=== PATIENT | female | born 1980 | race Caucasian/White ===

== ENCOUNTER → 2021-03-24 | Outpatient (CLI) | payer OTHER ==
[~2021-03-24] MED LIST: BUPR-168 PO; CEFP500T4 PO; GADOTERATE 0.5 MMOL/ML (CLARISCAN) 15 ML VIAL IV ONE; HYDR-3583 PO; IOHEXOL 240 MGI/ML 50 ML (OMNIPAQUE) VIAL IV ONE; IPRA3AMP19 IH; LEVO75TA6 PO; METH4TAB PO; NAPR-243 PO; ONDN4T PO; TRM50T PO
--- NOTE | 2021-03-24 14:44 | Diagnostic Imaging Report ---
INDICATION: Left shoulder pain. FINDINGS: Patient was brought to the procedure room, placed on table in the supine position. The left shoulder was prepped and draped in usual sterile fashion. Small amount of 1% lidocaine was utilized for local anesthesia. A 22-gauge needle was advanced and placed with its tip at the rotator interval. A 15 mL solution of iodinated contrast, normal saline, and gadolinium was injected under fluoroscopic observation. Needle was withdrawn and hemostasis was obtained. Total of 12 seconds of fluoroscopic time was utilized. IMPRESSION: Successful left shoulder injection of gadolinium contrast solution, using fluoroscopy. Dictated by: Dictated on workstation # [id number]
--- NOTE | 2021-03-24 16:02 | Diagnostic Imaging Report ---
INDICATION: Left shoulder pain with no known injuries. EXAMINATION: Left shoulder MRI with contrast on 03/24/2021. FINDINGS: The supraspinatus and infraspinatus tendons appear intact. The subscapularis tendon is intact. The long head of the biceps tendon lies in the bicipital groove and is also intact. The biceps tendon anchor appears intact. The labrum appears intact. There is no acute osseous abnormality. Muscle volume is preserved. The visualized axilla is unremarkable. IMPRESSION: Unremarkable MRI of the shoulder with the rotator cuff and labrum intact. Dictated by: Dictated on workstation # [id number]
== END ==
LOC: RAD 14:15
PROVIDERS: ATTEND Nurse Practitioner
DX: S43.432A Superior glenoid labrum lesion of left shoulder, initial encounter (principal); X58.XXXA Exposure to other specified factors, initial encounter
CPT/HCPCS: 23350; 73040; 73222

== ENCOUNTER 2021-06-01 17:23 | Emergency (ER) | payer OTHER ==
[~2021-06-01] VITALS: Ht 170 cm; Wt 88.0 kg
[~2021-06-01 17:23] MED LIST changes: -GADOTERATE 0.5 MMOL/ML (CLARISCAN) 15 ML VIAL IV ONE; -IOHEXOL 240 MGI/ML 50 ML (OMNIPAQUE) VIAL IV ONE
[2021-06-01 17:44] LABS: BASOPHILS % (AUTO) 1 % (0-10); EOSINOPHILS # (AUTO) 0.3 10^3/uL (0.0-0.3); EOSINOPHILS % (AUTO) 4 % (0-10); HEMATOCRIT 44 % (35-52); HEMOGLOBIN 14.8 g/dL (11.5-16.0); LYMPHOCYTES % (AUTO) 30 % (12-44); MEAN CORPUSCULAR HEMOGLOBIN 32 pg (25-34); MEAN CORPUSCULAR HGB CONC 34 g/dL (32-36); MEAN CORPUSCULAR VOLUME 95 fL (80-99); MEAN PLATELET VOLUME 10.3 fL (9.0-12.2); MONOCYTES # (AUTO) 0.5 10^3/uL (0.0-1.0); MONOCYTES % (AUTO) 8 % (0-12); NEUTROPHILS # (AUTO) 3.9 10^3/uL (1.8-7.8); NEUTROPHILS % (AUTO) 57 % (42-75); PLATELET COUNT 239 10^3/uL (130-400); WHITE BLOOD COUNT 6.8 10^3/uL (4.3-11.0)
[2021-06-01] MEDS ORDERED: ASPIRIN 81 MG CHEW (CHILDREN'S ASA) PO ONE ×2 (17:45→18:30)
[2021-06-01 17:53] LABS: INR 0.9 (0.8-1.4); PROTHROMBIN TIME PATIENT 12.8 SEC (12.2-14.7)
[2021-06-01 17:57] LABS: ALBUMIN 4.4 GM/DL (3.2-4.5); POTASSIUM 3.9 MMOL/L (3.6-5.0)
[2021-06-01 17:58] LABS: CALCIUM 9.2 MG/DL (8.5-10.1)
[2021-06-01 18:01] LABS: BILIRUBIN,TOTAL 0.7 MG/DL (0.1-1.0)
[2021-06-01 18:03] LABS: CREATININE SERUM 0.82 MG/DL (0.60-1.30)
[2021-06-01 18:06] LABS: MAGNESIUM 2.2 MG/DL (1.6-2.4)
--- NOTE | 2021-06-01 18:23 | Diagnostic Imaging Report ---
INDICATION: Back and shoulder pain. COMPARISON: None. FINDINGS: Single view of the chest demonstrates clear lungs bilaterally. The heart is normal. There is no pneumothorax. Osseous structures are normal. IMPRESSION: Negative chest. Dictated by: Dictated on workstation # [id number]
[2021-06-01] MEDS ORDERED: NITROGLYCERIN 0.4 MG SL TABS BTL 25'S SL PRN (18:30)
[2021-06-01] MEDS ORDERED: FAMOTIDINE 20MG/2ML IV (PEPCID) IV STA (18:44)
[2021-06-01] MEDS ORDERED: ANTACID SUSP 30 ML UDC (MYLANTA) PO ONE (18:45)
[2021-06-01] MEDS ORDERED: LIDOCAINE 2% VISCOUS 15 ML UDC PO ONE (18:45)
[2021-06-01] MEDS ORDERED: ONDANSETRON 4 MG/2 ML (SDV) Z0FRAN IVP ONE (18:45)
--- NOTE | 2021-06-01 19:38 | ED Chest Pain ---
General Chief Complaint: Chest Pain Stated Complaint: CHEST PAIN / SOA Nursing Triage Note: PT AMB TO ER WITH C/O CP SINCE 0 THAT RADIATED TO R SHOULDER AND BACK. PT WAS DRIVING WHEN IT STARTED. PT ALSO STATES SHE WAS COVID + ON 05/20 Source: patient Exam Limitations: no limitations History of Present Illness Date Seen by Provider: Jun 01, 2021 Time Seen by Provider: 17:33 Initial Comments This 40-year-old young lady presents to the emergency room with concerns about persistent chest pain since about noon today. It radiates to her back. Pain started while she was driving. She stopped at the [facility] clinic in [place] where she obtained an EKG. They advised her to come to the emergency room because they are worried about DVT. She has a positive COVID-19 test on May 20 after developing symptoms on May 19. She is on day 14 since onset of symptoms. There are no exacerbating or alleviating factors to her chest pain. She denies any associated symptoms such as shortness of breath, cough, fever, nausea, vomiting, lightheadedness, etc. she had a brief episode of diaphoresis while she was in [place]. Allergies and Home Medications Allergies Coded Allergies: ZAYDAANo Known Allergies (Verified Allergy, Unknown, 12/11/06) Patient Home Medication List Home Medication List Reviewed: Yes Bupropion Hcl (Wellbutrin Tab) 75 Mg Tab, 75 MG PO DAILY, (Reported) Entered as Reported by: CARLYN POE on 12/22/12 153 Levothyroxine Sodium (Levothyroxine 75 Mcg Tab) 75 Mcg Tablet, 75 MCG PO DAILY, (Reported) Entered as Reported by: CARLYN POE on 12/22/12 153 Naproxen (Naprosyn) 500 Mg Tablet, 1 EACH PO TID PRN Prescribed by: ARTURO FANG on 12/22/121715 Tramadol Hcl (Ultram) 50 Mg Tab, 50 MG PO Q4-6HOURS PRN Prescribed by: ARTURO FANG on 12/22/121715 Review of Systems Review of Systems Constitutional: see HPI EENTM: No Symptoms Reported Respiratory: No Symptoms Reported Cardiovascular: See HPI Gastrointestinal: No Symptoms Reported Genitourinary: No Symptoms Reported Musculoskeletal: no symptoms reported Skin: no symptoms reported Psychiatric/Neurological: No Symptoms Reported Endocrine: No Symptoms Reported Past Uunfptx-Odaphr-Frupid Hx Patient Social History Tobacco Use?: Yes Tobacco type used: Cigarettes Smoking Status: Current Everyday Smoker Substance use?: No Pt feels they are or have been: No Immunizations Up To Date Influenza Vaccine Up-to-Date: Yes; Up-to-Date First/Initial COVID19 Vaccinat: JAN 2021 Second COVID19 Vaccination Sander: MAR 2021 Past Medical History Surgeries: Yes Appendectomy, Hysterectomy Respiratory: No Cardiac: No Neurological: No : No Reproductive Disorders: Yes (SUNITHA II) [employer] WORK[employer] History: Hysterectomy Genitourinary: No Gastrointestinal: No Musculoskeletal: No Endocrine: Yes Hypothyroidsim, Diabetes, Non-Insulin dep HEENT: No Cancer: Yes Cervical (SUNITHA-2) Did You Recieve Any Treatments: Yes What Type of Treatment Did You: Surgical Intervention (Hysterectomy) Psychosocial: No Physical Exam Vital Signs Vital Signs - First Documented 06/01/21 06/01/21 17:30 20:05 Temp 36.1 Pulse 74 Resp 18 B/P (MAP) 132/80 (97) Pulse Ox 99 O2 Delivery Room Air Capillary Refill : Height, Weight, BMI Height: '" Weight: 198lbs. oz. [id number]; 30.00 BMI Method:Stated General Appearance: No Apparent Distress, WD/WN HEENT: PERRL/EOMI, Normal ENT Inspection Neck: Normal Inspection; No JVD Respiratory: Chest Non Tender, Lungs Clear, Normal Breath Sounds, No Accessory Muscle Use, No Respiratory Distress Cardiovascular: Regular Rate, Rhythm, No Edema, No Murmur, Normal Peripheral Pulses Gastrointestinal: Normal Bowel Sounds, Non Tender, Soft Extremity: Normal Inspection, Non Tender, No Calf Tenderness, No Pedal Edema Neurologic/Psychiatric: Alert, Oriented x3, No Motor/Sensory Deficits, Normal Mood/Affect, audit intern II-XII Norm as Tested Skin: Normal Color, Warm/Dry Progress/Results/Core Measures Results/Orders Lab Results Laboratory Tests Test 06/01/21 17:37 06/01/21 19:34 Range/Units White Blood Count 6.8 4.3-11.0 10^3/uL Red Blood Count 4.64 3.80-5.11 10^6/uL Hemoglobin 14.8 11.5-16.0 g/dL Hematocrit 44 35-52 % Mean Corpuscular Volume 95 80-99 fL Mean Corpuscular Hemoglobin 32 25-34 pg Mean Corpuscular Hemoglobin Concent 34 32-36 g/dL Red Cell Distribution Width 11.7 10.0-14.5 % Platelet Count 239 130-400 10^3/uL Mean Platelet Volume 10.3 9.0-12.2 fL Immature Granulocyte % (Auto) 0 % Neutrophils (%) (Auto) 57 42-75 % Lymphocytes (%) (Auto) 30 12-44 % Monocytes (%) (Auto) 8 0-12 % Eosinophils (%) (Auto) 4 0-10 % Basophils (%) (Auto) 1 0-10 % Neutrophils # (Auto) 3.9 1.8-7.8 10^3/uL Lymphocytes # (Auto) 2.0 1.0-4.0 10^3/uL Monocytes # (Auto) 0.5 0.0-1.0 10^3/uL Eosinophils # (Auto) 0.3 0.0-0.3 10^3/uL Basophils # (Auto) 0.0 0.0-0.1 10^3/uL Immature Granulocyte # (Auto) 0.0 0.0-0.1 10^3/uL Prothrombin Time 12.8 12.2-14.7 SEC INR Comment 0.9 0.8-1.4 Activated Partial Thromboplast Time 30 24-35 SEC D-Dimer < 0.22 0.00-0.49 UG/ML Sodium Level 140 135-145 MMOL/L Potassium Level 3.9 3.6-5.0 MMOL/L Chloride Level 104 98-107 MMOL/L Carbon Dioxide Level 24 21-32 MMOL/L Anion Gap 12 5-14 MMOL/L Blood Urea Nitrogen 16 7-18 MG/DL Creatinine 0.82 0.60-1.30 MG/DL Estimat Glomerular Filtration Rate 92 BUN/Creatinine Ratio 20 Glucose Level 87 70-105 MG/DL Calcium Level 9.2 8.5-10.1 MG/DL Corrected Calcium 8.9 8.5-10.1 MG/DL Magnesium Level 2.2 1.6-2.4 MG/DL Total Bilirubin 0.7 0.1-1.0 MG/DL Aspartate Amino Transf (AST/SGOT) 13 5-34 U/L Alanine Aminotransferase (ALT/SGPT) 18 0-55 U/L Alkaline Phosphatase 52 40-136 U/L Myoglobin 40.6 10.0-92.0 NG/ML Troponin I < 0.028 < 0.028 <0.028 NG/ML C-Reactive Protein High Sensitivity 0.10 0.00-0.50 MG/DL B-Type Natriuretic Peptide 13.5 <100.0 PG/ML Total Protein 8.0 6.4-8.2 GM/DL Albumin 4.4 3.2-4.5 GM/DL Serum Test, Qualitative NEGATIVE NEGATIVE My Orders Orders - EFRAIN WARREN MD Hs C Reactive Protein (06/01/21 17:57) Nitroglycerin 0.4 Mg Btl 25's (Nitrostat (06/01/21 18:30) Aspirin Chewable Tablet (Baby Aspirin Ch (06/01/21 18:30) Ondansetron Injection (Zofran Injectio (06/01/21 18:45) Lidocaine 2% Viscous 15 Ml (Xylocaine Vi (06/01/21 18:45) Antacid Suspension (Mylanta Suspension (06/01/21 18:45) Famotidine Injection (Pepcid Injection) (06/01/21 18:44) Troponin I Niko (06/01/21 19:35) Medications Given in ED Vital Signs/I&O 06/01/21 06/01/21 17:30 20:05 Temp 36.1 Pulse 74 60 Resp 18 18 B/P (MAP) 132/80 (97) 128/77 Pulse Ox 99 100 O2 Delivery Room Air Room Air Blood Pressure Mean: 97 Progress Progress Note : Time: 19:39 Progress Note Work-up was unremarkable. GI cocktail with Pepcid and Zofran was provided. This reduced her pain from 5/10 down to 1/10. A repeat delta troponin will be obtained. If this is normal she will be discharged home. Initial ECG Impression Date: Jun 01, 2021 Initial ECG Impression Time: 17:46 Initial ECG Rate: 67 Initial ECG Rhythm: Normal Sinus Comment Sinus rhythm with no ST elevation or depression. Prolonged KS interval at 237 ms. No abnormal axis deviation. Diagnostic Imaging Diagonstic Imaging: Xray Plain Films/CT/US/NM/MRI: chest Comments Chest x-ray viewed by me and report reviewed. See report below: NAME: ORALIA ELISE [facility] REC#: [id number] PT STATUS: REG ER : 1980 PHYSICIAN: HEVER YARBROUGH APRN ADMIT DATE: 06/01/21/ER Signed Date of Exam:06/01/21 CHEST 1 VIEW, AP/PA ONLY INDICATION: Back and shoulder pain. COMPARISON: None. FINDINGS: Single view of the chest demonstrates clear lungs bilaterally. The heart is normal. There is no pneumothorax. Osseous structures are normal. IMPRESSION: Negative chest. Dictated by: Dictated on workstation # [id number] Dict: 06/01/211820 Trans: 06/01/211824 [id number] Interpreted by: OG LEHMAN Electronically signed by: OG LEHMAN 06/01/211824 Departure Impression Primary Impression: Chest pain Qualified Codes: R07.9 - Chest pain, unspecified Disposition: HOME, SELF-CARE Condition: Improved Departure-Patient Inst. Decision time for Depature: 19:39 Referrals: [facility] (PCP/Family) Primary Care Physician Patient Instructions: Chest Pain (DC), Acid Reflux and GERD in Adults (DC) Add. Discharge Instructions: Take omeprazole 20 mg twice daily for at least the next 2 weeks. Avoid the following: Eating large meals, eating close to bedtime, caffeine, carbonation, chocolate, citrus fruits or juices, tomato products, alcohol, tobacco, spicy foods, fatty or greasy foods, mints, NSAID medications such as ibuprofen or naproxen, or anything else you know irritates your stomach. Follow-up with your primary care provider in the next couple of weeks. Call with questions or concerns. Return to the ER if you have worsening symptoms. All discharge instructions reviewed with patient and/or family. Voiced understanding. EFRAIN WARREN MD Jun 01, 2021 19:38
[2021-06-01 20:05] VITALS: BP 128/77
== END 2021-06-01 20:08 | disposition home or self-care (01) ==
LOC: EDUNIT# 17:23 → ER 17:24
DX: R07.9 Chest pain, unspecified (principal); E03.9 Hypothyroidism, unspecified; E11.9 Type 2 diabetes mellitus without complications; F17.210 Nicotine dependence, cigarettes, uncomplicated; Z79.890 Hormone replacement therapy
CPT/HCPCS: 36415; 71045; 80053; 83735; 83874; 83880; 84484; 84703; 85025; 85379; 85610; 85730; 86141; 93041

== ENCOUNTER → 2022-11-16 | Outpatient (CLI) | payer OTHER | LOC: CARD 09:00 | PROVIDERS: ATTEND Pediatrics | DX: R00.2 Palpitations (principal) | CPT/HCPCS: 93246 ==

== ENCOUNTER → 2022-12-07 | Outpatient (CLI) | payer OTHER | LOC: CARD 11:24 | PROVIDERS: ATTEND Pediatrics | DX: R63.5 Abnormal weight gain (principal) | CPT/HCPCS: 93306 ==